=== PATIENT | male | born 1990 | race Two or more races ===

== ENCOUNTER 2023-03-09 08:27 | Emergency (ER) | payer OTHER ==
[~2023-03-09] VITALS: Ht 160 cm; Wt 62.1 kg
--- NOTE | 2023-03-09 08:40 | NUR ---
C/O SUBSTERNAL CHEST TIGHTNESS + NAUSEA 20 MINS AGO. NON RADIATING.
[2023-03-09] MEDS ORDERED: hydrOXYzine 10 MG TABLET ONE (10:10)
[2023-03-09] MEDS ORDERED: ASPIRIN 325 MG TABLET ONE (10:11)
[2023-03-09] MEDS ORDERED: hydrOXYzine 10 MG TABLET PO ONE (10:30)
[2023-03-09] MEDS ORDERED: ASPIRIN 325 MG TABLET PO ONE (10:30)
[2023-03-09 10:42] LABS: CALCIUM, SERUM 9.8 mg/dL (8.5-10.1); CARBON DIOXIDE 21 mmol/L (21-32); CHLORIDE 97 mmol/L (98-107); CREATININE 0.6 mg/dL (0.6-1.3); GLUCOSE 114 mg/dL (74-106); POTASSIUM 3.3 mmol/L (3.5-5.1); SODIUM SERUM 137 mmol/L (136-145); UREA NITROGEN, BLOOD 4 mg/dL (7-18)
[2023-03-09 10:48] LABS: BASOPHILS # (AUTO) 0.1 K/uL (0.0-0.2); BASOPHILS % (AUTO) 1.8 % (0.0-2.0); EOSINOPHILS % (AUTO) 0.7 % (0.0-6.0); HEMATOCRIT 41 % (39-51); HEMOGLOBIN 14.2 g/dL (13.5-17.5); LYMPHOCYTES # (AUTO) 0.2 K/uL (0.8-4.8); LYMPHOCYTES % (AUTO) 3.9 % (20.0-44.0); MEAN CORPUSCULAR HGB CONC 35 g/dl (31.0-36.0); MEAN CORPUSCULAR VOLUME 95 fL (80-96); MONOCYTES # (AUTO) 0.6 K/uL (0.1-1.30); MONOCYTES % (AUTO) 9.3 % (2.0-12.0); NEUTROPHILS # (AUTO) 5.1 K/uL (1.8-8.9); NEUTROPHILS % (AUTO) 84.3 % (43.0-81.0); PLATELET COUNT (AUTO) 230 K/uL (150-450); RED BLOOD CELL COUNT(AUTO) 4.27 MIL/uL (4.5-6.0)
[2023-03-09 11:46] VITALS: TEMP 98.3
--- NOTE | 2023-03-09 13:56 | NUR ---
Patient discharged to home in stable condition. Written and verbal after care instructions given. Patient verbalizes understanding of instruction.IV removed. Catheter intact and site benign. Pressure and 4x4 applied to site. No bleeding noted.
[2023-03-09 13:57] VITALS: BP 125/81
== END 2023-03-09 13:57 | disposition home or self-care (01) ==
LOC: ER 08:30
DX: R07.9 Chest pain, unspecified (principal); F41.9 Anxiety disorder, unspecified; Z60.2 Problems related to living alone
CPT/HCPCS: 99285; 71045; 93005; 85025; 80048; 36415; 84484 ×2; Q0177